=== PATIENT | male | born 1985 | race Caucasian/White ===

== ENCOUNTER 2017-01-16 13:32 | Emergency (ER) | payer OTHER ==
[2017-01-16 13:39] VITALS: RESP 16; O2SAT 96
[2017-01-16] MEDS ORDERED: NS 1,000 ML IV ONE (13:56)
[2017-01-16] MEDS ORDERED: KETOROLAC 30 MG/1 ML SDV IVP ONE (13:56)
--- NOTE | 2017-01-16 13:59 | EDPHY ---
H & P Smoking Status: Never smoked Time Seen by Provider: 01/16/17 13:40 HPI/ROS: CHIEF COMPLAINT: Left lower quadrant pain HISTORY OF PRESENT ILLNESS: Patient is a 31-year-old male who presents to the emergency department with left lower abdominal pain. He has had mild discomfort for the past week. Last night he developed sharp pain in his left lower abdomen. The sharp pain is resolved and it is again described as an ache. It does not radiate. No dysuria or frequency. No testicular pain or discharge. No fevers or chills. REVIEW OF SYSTEMS: My complete review of systems is negative except as mentioned in the HPI. ( Loyda Olson) Past Medical/Surgical History: Left abdominal wall tear with surgical repair (Loyda Olson) Physical Exam: Vitals noted GENERAL: Well-appearing, in no acute distress, alert. HEENT: Eyes normal to inspection, normal pharynx, no signs of dehydration. NECK: No thyromegaly, no lymphadenopathy, supple. RESPIRATORY: Clear to auscultation bilaterally, no rales, rhonchi or wheezing. CVS: Regular rate and rhythm, no rubs, murmurs, or gallops. ABDOMEN: Soft, left lower quadrant tenderness palpation with no rebound or guarding. Nondistended, no organomegaly. BACK: Normal to inspection, no CVA tenderness. SKIN: Normal color, no rash, warm, dry. No pallor. EXTREMITIES: No pedal edema, no calf tenderness,no joint swelling. NEURO/PSYCH: Alert and oriented, normal mood and affect, normal motor sensory exam. (Loyda Olson S) Constitutional: Initial Vital Signs Temperature (C) 36.9 C 01/16/17 13:36 Heart Rate 89 01/16/17 13:36 Respiratory Rate 16 01/16/17 13:36 Blood Pressure 144/96 H 01/16/17 13:36 O2 Sat (%) 96 01/16/17 13:36 O2 Delivery Mode Room Air Allergies/Adverse Reactions: No Known Allergies Allergy (Verified 01/16/17 13:39) Home Medications: Medication Instructions Recorded Susan Allergy 01/16/17 Amoxicillin/Clavulanate Pot 875 mg PO BID #14 tab 01/16/17 [Augmentin 875 MG TAB (*)] Medical Decision Making - Diagnostics Imaging Results: Imaging Impressions Abdomen CT 01/16/17 13:56 Impression: 1. Mild splenomegaly. 2. Mild distal descending colon diverticulitis. 3. Mild generalized hepatic steatosis. Findings were discussed with Shilo Baires MD at 15:27, on 01/16/2017. ED Course/Re-evaluation: In the emergency department I discussed possible etiologies with the patient. I answered all of his questions. IV was placed. Patient was offered Toradol. Laboratory studies and CT were ordered. Patient's CBC was normal. His chemistry panel was remarkable for an elevated anion gap of 19. I am awaiting urine studies. 1455: The patient is stable. No new complaints. He is awaiting CT results and UA results. I discussed the plan with the patient and answered all his questions. Patient was signed out to Dr. Baires at change of shift. (Loyda Olson) At 3 35 p.m. I spoke with patient regarding his CT demonstrating early [id number] without evidence of abscess or rupture. I counseled him regarding this diagnosis. He accepted a dose of ibuprofen for mild discomfort currently at 3/10 intensity. He is also given a oral dose of Augmentin 875 p.o.. He appears well clinically at this time with normal vital signs. He understands the need to return should he have any significant worsening of symptoms despite the treatment plan. (Shilo Baires) Differential Diagnosis: My differential includes but is not limited to small-bowel obstruction, perforation, urinary tract infection, pyelonephritis, STD, hernia, incarcerated hernia, strangulated hernia, situs inversus (Loyda Olson) - Data Points Laboratory Results: Laboratory Results 01/16/17 13:48 01/16/17 13:48 01/16/17 01/16/17 01/16/17 15:08 13:48 13:48 WBC 8.01 10^3/uL 10^3/uL (3.80-9.50) RBC 5.67 10^6/uL 10^6/uL (4.40-6.38) Hgb 16.8 g/dL g/dL (13.7-17.5) Hct 47.5 % % (40.0-51.0) MCV 83.8 fL fL (81.5-99.8) MCH 29.6 pg pg (27.9-34.1) MCHC 35.4 g/dL g/dL (32.4-36.7) RDW 12.3 % % (11.5-15.2) Plt Count 319 10^3/uL 10^3/uL (150-400) MPV 10.0 fL fL (8.7-11.7) Neut % (Auto) 63.2 % % (39.3-74.2) Lymph % (Auto) 29.0 % % (15.0-45.0) [place] % (Auto) 4.9 % % (4.5-13.0) Eos % (Auto) 1.4 % % (0.6-7.6) Baso % (Auto) 1.0 % % (0.3-1.7) Nucleat RBC Rel Count 0.0 % % (0.0-0.2) Absolute Neuts (auto) 5.07 10^3/uL 10^3/uL (1.70-6.50) Absolute Lymphs (auto) 2.32 10^3/uL 10^3/uL (1.00-3.00) Absolute Monos (auto) 0.39 10^3/uL 10^3/uL (0.30-0.80) Absolute Eos (auto) 0.11 10^3/uL 10^3/uL (0.03-0.40) Absolute Basos (auto) 0.08 10^3/uL 10^3/uL (0.02-0.10) Absolute Nucleated RBC 0.00 10^3/uL 10^3/uL (0-0.01) Immature Gran % 0.5 % % (0.0-1.1) Immature Gran # 0.04 10^3/uL 10^3/uL (0.00-0.10) Sodium 144 mEq/L mEq/L (134-144) Potassium 4.0 mEq/L mEq/L (3.5-5.2) Chloride 102 mEq/L mEq/L (97-110) Carbon Dioxide 23 mEq/l mEq/l (22-31) Anion Gap 19 mEq/L H mEq/L (8-16) BUN 24 mg/dL H mg/dL (7-23) Creatinine 1.2 mg/dL mg/dL (0.7-1.3) Estimated GFR > 60 Glucose 117 mg/dL H mg/dL (70-100) Calcium 10.0 mg/dL mg/dL (8.5-10.4) Urine Color YELLOW Urine Appearance HAZY Urine pH 6.0 (5.0-7.5) Ur Specific [place] 1.025 (1.002-1.030) Urine Protein NEGATIVE (NEGATIVE) Urine Ketones NEGATIVE (NEGATIVE) Urine Blood 1+ H (NEGATIVE) Urine Nitrate NEGATIVE (NEGATIVE) Urine Bilirubin NEGATIVE (NEGATIVE) Urine Urobilinogen 0.2 EU EU (0.2-1.0) Ur Leukocyte Esterase NEGATIVE (NEGATIVE) Urine RBC 3-5 /hpf H /hpf (0-3) Urine WBC 0-1 /hpf /hpf (0-3) Ur Epithelial Cells NONE SEEN /lpf /lpf (NONE-1+) Urine Bacteria TRACE /hpf H /hpf (NONE SEEN) Urine Mucus 3+ /lpf H /lpf (NONE-1+) Urine Glucose NEGATIVE (NEGATIVE) Medications Given: Discontinued Medications Sodium Chloride (Ns) 1,000 mls @ 0 mls/hr IV EDNOW ONE; Wide Open PRN Reason: Protocol Stop: 01/16/17 13:57 Last Admin: 01/16/17 14:11 Dose: 1,000 mls Ketorolac Tromethamine (Toradol) 30 mg IVP EDNOW ONE Stop: 01/16/17 13:57 Last Admin: 01/16/17 14:11 Dose: Not Given Departure - Departure Disposition: Home, Routine, Self-Care Clinical Impression: Abdominal pain Qualifiers: Abdominal location: left lower quadrant Qualified Code(s): R10.32 - Left lower quadrant pain Diverticulitis Qualifiers: Diverticulitis site: large intestine Diverticulitis bleeding: without bleeding Diverticulitis complication: without perforation or abscess Qualified Code(s): K57.32 - Diverticulitis of large intestine without perforation or abscess without bleeding Condition: Good Instructions: Abdominal Pain (ED), Diverticulitis (ED), Diverticulitis Diet (ED ) Additional Instructions: Diagnosis: Diverticulitis Plan: High-fiber diet Plenty fluids Ibuprofen for discomfort Augmentin antibiotic Continue probiotics while taking Augmentin Return for any significant worsening despite the treatment plan. Referrals: Jhonny Pacheco MD [Medical Doctor] - 3-4 days, if not improved Prescriptions: Amoxicillin/Clavulanate Pot [Augmentin 875 MG TAB (*)] 875 mg PO BID #14 tab
[2017-01-16 14:01] LABS: % IMMATURE GRANULYOCYTES 0.5 % (0.0-1.1); ABSOLUTE IMMATURE GRANULOCYTES 0.04 10^3/uL (0.00-0.10); ADD DIFF? NO; ADD MORPH? NO; ADD SCAN? NO; ATYPICAL LYMPHOCYTE FLAG 0 (0-99); FRAGMENT RBC FLAG 0 (0-99); HEMATOCRIT 47.5 % (40.0-51.0); HEMOGLOBIN 16.8 g/dL (13.7-17.5); LEFT SHIFT FLG 0 (0-99); LIPEMIA HEMOLYSIS FLAG 90 (0-99); MEAN CELL HEMOGLOBIN 29.6 pg (27.9-34.1); MEAN CELL HEMOGLOBIN CONCENTR. 35.4 g/dL (32.4-36.7); MEAN CELL VOLUME 83.8 fL (81.5-99.8); PLATELET CLUMPS FLAG 0 (0-99); PLATELET COUNT 319 10^3/uL (150-400); RED BLOOD CELL COUNT 5.67 10^6/uL (4.40-6.38); RED CELL DISTRIBUTION WIDTH 12.3 % (11.5-15.2)
[2017-01-16 14:12] LABS: ANION GAP 19 mEq/L (8-16); CARBON DIOXIDE 23 mEq/l (22-31); CHLORIDE 102 mEq/L (97-110); CREATININE 1.2 mg/dL (0.7-1.3); GLOMERULAR FILTRATION RATE > 60; GLUCOSE 117 mg/dL (70-100); SODIUM 144 mEq/L (134-144)
[2017-01-16] MEDS ORDERED: IOPAMIDOL (ISOVUE-300) 100 ML BTL ONE (14:19)
[2017-01-16 15:15] LABS: COLOR YELLOW; LEUKOCYTE ESTERASE,URINE NEGATIVE (NEGATIVE); NITRITE,URINE NEGATIVE (NEGATIVE)
[2017-01-16] MEDS ORDERED: IBUPROFEN 600 MG TAB PO ONE (15:40)
[2017-01-16 15:43] LABS: BACTERIA TRACE /hpf (NONE SEEN); MUCUS 3+ /lpf (NONE-1+); WBC,URINE 0-1 /hpf (0-3)
[2017-01-16] MEDS ORDERED: AMOXICILLIN/CLAVULANATE POT 875/125 MG TAB PO ONE (15:43)
[2017-01-16 16:07] VITALS: BP 151/92; PULSE 84; TEMP 98.2
== END 2017-01-16 16:04 | disposition home or self-care (01) ==
LOC: CED 13:32
DX: K57.32 Diverticulitis of large intestine without perforation or abscess without bleeding (principal); E86.9 Volume depletion, unspecified
CPT/HCPCS: 74177-PO; 80048-PO; 81003-PO; 81015-PO; 85025-PO; Q9967